=== PATIENT | female | born 1950 | race Caucasian/White ===

== ENCOUNTER 2021-03-08 16:44 | Observation (INO) | payer MEDICARE, OTHER ==
--- NOTE | 2021-03-08 17:00 | ED ---
Chest Pain HPI - General Chief Complaint: Chest Pain Stated Complaint: chest pain Source: EMS Mode of arrival: EMS Limitations: no limitations - History of Present Illness Initial Comments: Patient is a 70-year-old female with past history of hypertension, hyperlipidemia presents emergency department from [facility]. Patient reports that she has had intermittent chest pain for the past couple of days. Describes it as a sharp sensation in the central region of her chest. Denies any provocative factors. No previous history of cardiac disease. Patient did see her primary care physician who sent her into [facility]. Initial workup demonstrated negative troponin. Heart sore was caluculated to be 5. Because of this they did recommend admission for which they did not have cardiology consultation. Patient agreed to transfer to our [facility]. Upon arrival here she states that the pain has subsided. States it is reproducible upon palpation. Denies previous history of cardiac disease. No associated shortness of breath. Denies nausea. No other alleviating, precipitating or modifying factors - Related Data Home Medications Medication Instructions Recorded Confirmed Aspirin EC [Ecotrin Low Dose] 81 mg PO HS 03/08/21 03/08/21 Fenofibrate Nanocrystallized 48 mg PO DAILY 03/08/21 03/08/21 [Fenofibrate] Levothyroxine Sodium [Synthroid] 125 mcg PO DAILY 03/08/21 03/08/21 Losartan Potassium 50 mg PO DAILY 03/08/21 03/08/21 Multivitamins, Thera [Multivitamin 1 tab PO DAILY 03/08/21 03/08/21 (formulary)] [place]-3 Fatty Acids/Fish Oil [Fish 1 cap PO BID 03/08/21 03/08/21 Oil 1,000 mg Softgel] Omeprazole [PriLOSEC] 20 mg PO DAILY 03/08/21 03/08/21 Simvastatin 40 mg PO HS 03/08/21 03/08/21 Allergies Allergy/AdvReac Type Severity Reaction Status Date / Time No Known Allergies Allergy Verified 03/08/21 19:02 Review of Systems ROS Statement: Those systems with pertinent positive or pertinent negative responses have been documented in the HPI. ROS Other: All systems not noted in ROS Statement are negative. EKG Findings - EKG Comments: EKG Findings:: EKG demonstrates normal sinus rhythm with a ventricular rate of 66. NV interval 170. QRS 94. QTC of 421. No acute ST segment elevations or depressions Past Medical History Past Medical History: No Reported History History of Any Multi-Drug Resistant Organisms: None Reported Past Surgical History: No Surgical Hx Reported Past Psychological History: No Psychological Hx Reported Smoking Status: Never smoker Past Alcohol Use History: Rare Past Drug Use History: None Reported - Past Family History Family Family Medical History: No Reported History General Exam Limitations: no limitations General appearance: alert, in no apparent distress Head exam: Present: atraumatic, normocephalic, normal inspection Eye exam: Present: normal appearance, PERRL, EOMI. Absent: scleral icterus, conjunctival injection, periorbital swelling ENT exam: Present: normal exam, mucous membranes moist Neck exam: Present: normal inspection. Absent: tenderness, meningismus, lymphadenopathy Respiratory exam: Present: normal lung sounds bilaterally. Absent: respiratory distress, wheezes, rales, rhonchi, stridor Cardiovascular Exam: Present: regular rate, normal rhythm, normal heart sounds. Absent: systolic murmur, diastolic murmur, rubs, gallop, clicks GI/Abdominal exam: Present: soft, normal bowel sounds. Absent: distended, tenderness, guarding, rebound, rigid Extremities exam: Present: normal inspection, full ROM, normal capillary refill. Absent: tenderness, pedal edema, joint swelling, calf tenderness Back exam: Present: normal inspection Neurological exam: Present: alert, oriented X3, CN II-XII intact Psychiatric exam: Present: normal affect, normal mood Skin exam: Present: warm, dry, intact, normal color. Absent: rash Course Vital Signs 03/08/21 03/08/21 03/08/21 16:46 19:02 19:54 Temperature 98 F Pulse Rate 66 80 82 Respiratory 18 18 16 Rate Blood Pressure 151/76 154/74 153/85 O2 Sat by Pulse 98 100 98 Oximetry 03/08/21 21:35 Temperature Pulse Rate 70 Respiratory 16 Rate Blood Pressure 163/81 O2 Sat by Pulse 98 Oximetry Chest Pain MDM - MDM Upon arrival patient is placed into room 27. Thorough history and physical exam is performed. Patient is pain-free at this time. The patient has already been given 4 aspirins at [facility]. Repeat EKG was performed. La boratory studies were conducted and reviewed. Second troponin is negative. Did recommend hospital admission for which patient did agree to. Spoke with Dr.Michaelle who agreed to admit the patient. She is currently awaiting a bed on the floor Disposition Clinical Impression: Chest pain Disposition: ADMITTED IP TO THIS HOSP Condition: Stable Is patient prescribed a controlled substance at d/c from ED?: No Decision to Admit Reason: Admit from EC Decision Date: 03/08/21 Decision Time: 18:29
[2021-03-08 17:51] LABS: Basophils # (A) 0.1 k/uL (0-0.2); Basophils % (A) 1 %; Eosinophils # (A) 0.8 k/uL (0-0.7); Eosinophils % (A) 8 %; Lymphocytes # (A) 1.8 k/uL (1.0-4.8); Lymphocytes % (A) 19 %; MCHC 34.2 g/dL (31.0-37.0); MCV 90.6 fL (80.0-100.0); Mean Platelet Volume 7.3; Monocytes # (A) 0.4 k/uL (0-1.0); Monocytes % (A) 5 %; Neutrophils # (A) 6.1 k/uL (1.3-7.7); Neutrophils % (A) 66 %; Platelet Count 304 k/uL (150-450); RDW 14.3 % (11.5-15.5); WBC 9.2 k/uL (3.8-10.6)
[2021-03-08 18:05] LABS: Partial Thromboplastin Time 22.3 sec (22.0-30.0); Prothrombin Time 10.5 sec (9.0-12.0)
[2021-03-08 18:13] LABS: Albumin 3.7 g/dL (3.5-5.0); Calcium 9.3 mg/dL (8.4-10.2); Potassium 3.9 mmol/L (3.5-5.1); Total Bilirubin 0.4 mg/dL (0.2-1.3); Total Protein 6.1 g/dL (6.3-8.2)
[2021-03-08] MEDS ORDERED: NALOXONE 0.4 MG/ML 1 ML VIAL IV PRN (18:30)
[2021-03-08] MEDS ORDERED: NON FORMULARY DRUG (Omega-3 Fatty Acids/Fish Oil [Fish Oil 1,000 Mg Softgel] 1 EACH Capsul PO SCH (21:00)
[2021-03-08] MEDS ORDERED: ATORVASTATIN 20 MG TAB PO SCH (21:00)
[2021-03-08] MEDS ORDERED: ASPIRIN 81 MG PO SCH (21:00)
--- NOTE | 2021-03-09 01:56 | P.HPIM ---
History of Present Illness H&P Date: 03/08/21 Chief Complaint: chest pain 70 year old female with hypertension , hyperlipidemia , GERD patient transferred to our facility from [facility] for cardiology evaluation , due to sudden onset chest pain . Friday she started experiencing stiff neck , for which she takes full dose aspirin couple times aday (on empty stomach at times), in addition to her regular baby aspirin at night . last night she experienced sudden onset central sharp chest pain , non ra diating, 7/10 severe pain . no associated SOB, palpitations, nausea , vomiting, diaphoresis, or dizziness. this happened at rest while doing nothing , no specific precipitating or aggravating factors. pain started to get worse as she laid down to rest. after one hour pain resolved. today she went to see her doctor , who did an EKG , and was suspecting some changes, and recommended she goes to the ED, at [facility] they evaluated her and transferred her to our facility for evaluation by cardiology patient is currently sitting comfortable denies any pain in the ED, blood work , vital signs , and EKG all unremarkable she denies any fever, chills, URI symptoms, GI bleeding , changes in bowel or urinary habits. denies any cardiac history , denies any smoking . she does have chronic GERD on PPI Review of Systems Pertinent positives as noted in HPI. All other systems were reviewed and are negative Past Medical History Past Medical History: GERD/Reflux, Hyperlipidemia, Hypertension History of Any Multi-Drug Resistant Organisms: None Reported Past Surgical History: No Surgical Hx Reported Past Psychological History: No Psychological Hx Reported Smoking Status: Never smoker Past Alcohol Use History: Rare Past Drug Use History: None Reported - Past Family History Family Family Medical History: No Reported History Medications and Allergies Home Medications Medication Instructions Recorded Confirmed Type Aspirin EC [Ecotrin Low Dose] 81 mg PO HS 03/08/21 03/08/21 History Fenofibrate Nanocrystallized 48 mg PO DAILY 03/08/21 03/08/21 History [Fenofibrate] Levothyroxine Sodium [Synthroid] 125 mcg PO DAILY 03/08/21 03/08/21 History Losartan Potassium 50 mg PO DAILY 03/08/21 03/08/21 History Multivitamins, Thera [Multivitamin 1 tab PO DAILY 03/08/21 03/08/21 History (formulary)] [place]-3 Fatty Acids/Fish Oil [Fish 1 cap PO BID 03/08/21 03/08/21 History Oil 1,000 mg Softgel] Omeprazole [PriLOSEC] 20 mg PO DAILY 03/08/21 03/08/21 History Simvastatin 40 mg PO HS 03/08/21 03/08/21 History Allergies Allergy/AdvReac Type Severity Reaction Status Date / Time No Known Allergies Allergy Verified 03/08/21 19:02 Physical Exam Vitals: Vital Signs Temp Pulse Resp BP Pulse Ox 03/08/21 19:54 82 16 153/85 98 03/08/21 19:02 80 18 154/74 100 03/08/21 16:46 98 F 66 18 151/76 98 Intake and Output 03/08/21 03/08/21 03/08/21 06:59 14:59 22:59 Other: Weight 103.873 kg Constitutional: No acute distress, conversant, pleasant Eyes: Anicteric sclerae, moist conjunctiva, Pupils equal round reactive to light ENMT: NC/AT Oropharynx clear, no erythema, or exudates Neck: Supple, FROM, no masses, or JVD No carotid bruits No thyromegaly Lungs: Clear to auscultation Clear to percussion Normal respiratory effort, no accessory muscle use Cardiovascular: Heart regular in rate and rhythm, No murmurs, gallops, or rubs No peripheral edema Abdominal: Soft Nontender, no guarding, rebound or rigidity Abdomen moving with respiration Normoactive bowel sounds No hepatomegaly, No splenomegaly No palpable mass No abdominal wall hernia noted Skin: Normal temperature, tone, texture, turgor No induration No subcutaneous nodules No rash, lesions No ulcers Extremities: No digital cyanosis No clubbing Pedal pulses intact and symmetrical Radial pulses intact and symmetrical No calf tenderness Psychiatric: Alert and oriented to person, place and time Appropriate affect fair judgement Neuro Muscles Strength 5/5 in all 4 extremities Sensation to light touch grossly present throughout Cranial nerves II-XII grossly intact No focal sensory deficits Lymphatics: no palpable cervical or supraclavicular , or inguinal lymph nodes Results CBC & Chem 7: 03/08/21 17:44 03/08/21 17:44 Labs: Abnormal Lab Results - Last 24 Hours (Table) 03/08/21 03/08/21 Range/Units 17:44 17:44 Eosinophils # 0.8 H (0-0.7) k/uL Chloride 109 H (98-107) mmol/L Total Protein 6.1 L (6.3-8.2) g/dL Assessment and Plan Assessment: Atypical chest pain rule out ACS Hyperlipidemia Cardiac monitoring Monitor vital signs Trend cardiac enzymes Aspirin, statin Labs reviewed EKG reviewed Chronic GERD, PPI twice a day CODE STATUS: Full code DVT prophylaxis: Mechanical Discussed with: Patient, ER, Anticipated length of stay less than [address]: Home A total of 70 minutes was spent on the care of this complex patient more than 50% of the time was spent in counseling and care coordination.
[2021-03-09] MEDS ORDERED: LEVOTHYROXINE 125 MCG TAB PO SCH (06:30)
[2021-03-09] MEDS ORDERED: PANTOPRAZOLE 40 MG TABLET PO SCH ×2 (07:30→09:00)
[2021-03-09] MEDS ORDERED: MULTIVITAMINS, THERA 1 EACH TAB PO SCH (09:00)
[2021-03-09] MEDS ORDERED: FENOFIBRATE 54 MG TAB PO SCH (09:00)
[2021-03-09] MEDS ORDERED: LOSARTAN 50 MG TAB PO SCH (09:00)
--- NOTE | 2021-03-09 09:58 | P.CRDCN ---
History of Present Illness History of present illness: HISTORY OF PRESENTING ILLNESS This is a pleasant 70-year-old female past medical history significant for hypertension and dyslipidemia. She denies prior history of coronary artery disease and does not follow in the office with a electrical calibrator. We have been asked to see in consultation for chest pain. She states for the previous one week she has been experiencing a stiff tight sensation in her neck that radiates into both shoulders. This discomfort is described as an achy sensation that is exacerbated by certain movements of her arms and head. On Friday she noticed a discomfort in the chest in the midsternal region that seemed to radiate from the neck to the chest. The discomfort was not associated with activity or exertion. There was no associated symptoms. She is currently chest pain-free. She saw her primary care physician on and was recommended to go to the hospital for further evaluation. She initially presented to [facility] and was transferred here for further cardiac evaluation. DIAGNOSTICS EKG reveals sinus mechanism heart rate of 66 with nonspecific abnormalities noted. Telemetry tracings indicate sinus mechanism. Laboratory reviewed, EDC unremarkable, sodium 143, potassium 3.9, creatinine 0.79, cardiac enzymes negative 3. Current cardiac medications include simvastatin 40 mg at bedtime, aspirin 81 mg daily, losartan 50 mg daily and fenofibrate 48 mg daily. REVIEW OF SYSTEMS At the time of my exam: CONSTITUTIONAL: Denies fever or chills. CARDIOVASCULAR: Denies chest pain, shortness of breath, orthopnea, PND or pa lpitations. RESPIRATORY: Denies cough. GASTROINTESTINAL: Denies abdominal pain, diarrhea, constipation, nausea or vomiting. MUSCULOSKELETAL: Denies myalgias. NEUROLOGIC: Denies numbness, tingling, headacbe or weakness. ENDOCRINE: Denies fatigue, weight change, polydipsia or polyurina. GENITOURINARY: Denies burning, hematuria or urgency with micturation. HEMATOLOGIC: Denies history of anemia or bleeding. PHYSICAL EXAMINATION Blood pressure 120/72 heart rate 64 afebrile and maintaining oxygen saturation on room air. CONSTITUTIONAL: No apparent distress. HEENT: Head is normocephalic. Pupils are equal, round. Sclerae anicteric. Mucous membranes of the mouth are moist. No JVD. No carotid bruit. CHEST EXAMINATION: Lungs are clear to auscultation. No chest wall tenderness is noted on palpation or with deep breathing. HEART EXAMINATION: Regular rate and rhythm. S1, S2 heard. Systolic ejection murmur at the base, no gallops or rub. ABDOMEN: Soft, nontender. Positive bowel sounds. EXTREMITIES: 2+ peripheral pulses, no lower extremity edema and no calf tenderness. NEUROLOGIC EXAMINATION: Patient is awake, alert and oriented x3. ASSESSMENT Chest pain, atypical Hypertension Dyslipidemia Obesity, BMI 39 PLAN An acute coronary event has been ruled out. Pain is atypical to be related to angina. Obtain 2-D echocardiogram and Doppler study to assess cardiac structure and function secondary to murmur auscultated on exam. Obtain stress echocardiogram to assess for stress-induced cardiac ischemia. Check lipid profile. If stress test is normal she may be discharged from a cardiac perspective, follow-up in the outpatient setting with Dr. Bear. Thank you kindly for this consultation. Nurse Practitioner note has been reviewed, I agree with a documented findings and plan of care. Patient was seen and examined. Past Medical History Past Medical History: GERD/Reflux, Hyperlipidemia, Hypertension History of Any Multi-Drug Resistant Organisms: None Reported Past Surgical History: No Surgical Hx Reported Past Psychological History: No Psychological Hx Reported Smoking Status: Never smoker Past Alcohol Use History: Rare Past Drug Use History: None Reported - Past Family History Family Family Medical History: No Reported History Medications and Allergies Home Medications Medication Instructions Recorded Confirmed Type Aspirin EC [Ecotrin Low Dose] 81 mg PO HS 03/08/21 03/08/21 History Fenofibrate Nanocrystallized 48 mg PO DAILY 03/08/21 03/08/21 History [Fenofibrate] Levothyroxine Sodium [Synthroid] 125 mcg PO DAILY 03/08/21 03/08/21 History Losartan Potassium 50 mg PO DAILY 03/08/21 03/08/21 History Multivitamins, Thera [Multivitamin 1 tab PO DAILY 03/08/21 03/08/21 History (formulary)] [place]-3 Fatty Acids/Fish Oil [Fish 1 cap PO BID 03/08/21 03/08/21 History Oil 1,000 mg Softgel] Omeprazole [PriLOSEC] 20 mg PO DAILY 03/08/21 03/08/21 History Simvastatin 40 mg PO HS 03/08/21 03/08/21 History Allergies Allergy/AdvReac Type Severity Reaction Status Date / Time No Known Allergies Allergy Verified 03/08/21 19:02 Physical Exam Vitals: Vital Signs Temp Pulse Pulse Resp BP BP Pulse Ox 03/09/21 08:00 16 03/09/21 07:00 97.9 F 64 17 120/72 99 03/09/21 02:00 98.0 F 57 L 16 146/70 96 03/08/21 22:07 98.5 F 70 160/98 97 03/08/21 21:35 70 16 163/81 98 03/08/21 19:54 82 16 153/85 98 03/08/21 19:02 80 18 154/74 100 03/08/21 16:46 98 F 66 18 151/76 98 Intake and Output 03/08/21 03/09/21 03/09/21 22:59 06:59 14:59 Intake Total 0 Balance 0 Intake: Oral 0 Other: Voiding Method Toilet # Voids 0 0 Weight 103.873 kg Results 03/08/21 17:44 03/08/21 17:44 Cardiac Enzymes 03/08/21 03/08/21 03/08/21 Range/Units 17:44 17:44 20:12 AST 23 (14-36) U/L Troponin I <0.012 <0.012 (0.000-0.034) ng/mL 03/09/21 Range/Units 01:05 AST (14-36) U/L Troponin I <0.012 (0.000-0.034) ng/mL Coagulation 03/08/21 Range/Units 17:44 PT 10.5 (9.0-12.0) sec APTT 22.3 (22.0-30.0) sec CBC 03/08/21 Range/Units 17:44 WBC 9.2 (3.8-10.6) k/uL RBC 4.20 (3.80-5.40) m/uL Hgb 13.0 (11.4-16.0) gm/dL Hct 38.0 (34.0-46.0) % Plt Count 304 (150-450) k/uL Comprehensive Metabolic Panel 03/08/21 Range/Units 17:44 Sodium 143 (137-145) mmol/L Potassium 3.9 (3.5-5.1) mmol/L Chloride 109 H (98-107) mmol/L Carbon Dioxide 27 (22-30) mmol/L BUN 14 (7-17) mg/dL Creatinine 0.79 (0.52-1.04) mg/dL Glucose 91 (74-99) mg/dL Calcium 9.3 (8.4-10.2) mg/dL AST 23 (14-36) U/L ALT 21 (4-34) U/L Alkaline Phosphatase 79 (38-126) U/L Total Protein 6.1 L (6.3-8.2) g/dL Albumin 3.7 (3.5-5.0) g/dL Current Medications Generic Name Dose Route Start Last Admin Trade Name Freq PRN Reason Stop Dose Admin Aspirin 81 mg 03/08/21 21:00 03/08/21 22:21 Aspirin 81 Mg PO Not Given HS SHENG Atorvastatin Calcium 20 mg 03/08/21 21:00 03/08/21 22:23 Atorvastatin 20 Mg Tab PO 20 mg HS SHENG Administration Fenofibrate 54 mg 03/09/21 09:00 03/09/21 07:46 Fenofibrate 54 Mg Tab PO 54 mg DAILY SHENG Administration Levothyroxine Sodium 125 mcg 03/09/21 06:30 03/09/21 05:41 Levothyroxine 125 Mcg Tab PO 125 mcg 0630 SHENG Administration Losartan Potassium 50 mg 03/09/21 09:00 03/09/21 07:46 Losartan 50 Mg Tab PO 50 mg DAILY SHENG Administration Multivitamins 1 each 03/09/21 09:00 03/09/21 07:46 Multivitamins, Thera 1 Each Tab PO 1 each DAILY SHENG Administration Naloxone HCl 0.2 mg 03/08/21 18:30 Naloxone 0.4 Mg/Ml 1 Ml Vial IV Q2M PRN Opioid Reversal Pantoprazole Sodium 40 mg 03/09/21 07:30 03/09/21 07:46 Pantoprazole 40 Mg Tablet PO 40 mg AC-BID SHENG Administration Intake and Output 03/08/21 03/09/21 03/09/21 22:59 06:59 14:59 Intake Total 0 Balance 0 Intake: Oral 0 Other: Voiding Method Toilet # Voids 0 0 Weight 103.873 kg 03/08/21 17:44 03/08/21 17:44
[2021-03-09 11:02] LABS: Basophils # (A) 0.05 X 10*3/uL (0.00-0.10); Basophils % (A) 0.6 %; Eosinophils # (A) 0.66 X 10*3/uL (0.04-0.35); Eosinophils % (A) 7.3 %; HCT 39.9 % (37.2-46.3); Lymphocytes # (A) 2.15 X 10*3/uL (0.90-5.00); Lymphocytes % (A) 23.9 %; MCH 30.2 pg (27.0-32.0); MCHC 32.6 g/dL (32.0-37.0); MCV 92.6 fL (80.0-97.0); Monocytes % (A) 7.8 %; Neutrophils % (A) 60.1 %; Platelet Count 323 X 10*3/uL (140-440); RBC 4.31 X 10*6/uL (4.10-5.20); RDW 14.9 % (11.5-14.5); WBC 8.99 X 10*3/uL (4.50-10.00)
--- NOTE | 2021-03-09 12:00 | ECHOF ---
Referral Reason:murmur MEASUREMENTS -------- HEIGHT: 162.6 cm WEIGHT: 103.9 kg BP: 146/70 IVSd: 1.7 cm (0.6 - 1.1) LVIDd: 3.4 cm (3.9 - 5.3) LVPWd: 2.1 cm (0.6 - 1.1) IVSs: 2.4 cm LVIDs: 1.6 cm LVPWs: 1.6 cm LAESV Index (A-L): 28.50 ml/m Ao Diam: 3.0 cm (2.0 - 3.7) AV Cusp: 1.2 cm (1.5 - 2.6) MV EXCURSION: 17.180 mm (> 18.000) MV EF SLOPE: 28 mm/s (70 - 150) EPSS: 0.3 cm MV E Nader: 1.00 m/s MV DecT: 232 ms MV A Nader: 1.29 m/s MV E/A Ratio: 0.77 FINDINGS -------- Sinus rhythm. This was a technically difficult study with suboptimal views. The left ventricular size is normal. There is severe concentric left ventricular hypertrophy. Ove rall left ventricular systolic function is normal with, an EF between 55 - 60 %. The diastolic fill ing pattern is normal for the age of the patient 16.90. The right ventricle is normal in size. Normal LA size by volume 22+/-6 ml/m2. The right atrium was not well visualized. xx ml of Lumason was utilized for enhancement of images. Interatrial and interventricular septum intact. The aortic valve was not well visualized. Trace amount of aortic regurgitation. There is no evid ence of aortic stenosis. Mild mitral annular calcification present. Mild mitral regurgitation is present. Trace tricuspid regurgitation present. Unable to estimate RVSP due to inadequate TR jet spectral do ppler profile. The pulmonic valve was not well visualized. There is no pulmonic regurgitation present. The aortic root size is normal. IVC Not well visulized. There is a trivial pericardial effusion present. CONCLUSIONS -------- 1. This was a technically difficult study with suboptimal views. 2. There is severe concentric left ventricular hypertrophy. 3. Overall left ventricular systolic function is normal with, an EF between 55 - 60 %. 4. Normal LA size by volume 22+/-6 ml/m2. 5. Trace amount of aortic regurgitation. 6. Mild mitral annular calcification present. 7. Mild mitral regurgitation is present. 8. Trace tricuspid regurgitation present. 9. There is a trivial pericardial effusion present. AUTOMOTIVE TECHNICIAN INSTRUCTOR: Adriana Reynoso RDCS
[2021-03-09 13:59] LABS: Chol/HDL Ratio 4.71
[2021-03-09 14:05] VITALS: BP 144/79; PULSE 78; RESP 18; TEMP 98.1
--- NOTE | 2021-03-09 14:28 | P.DS ---
Providers Date of admission: 03/08/21 18:31 Expected date of discharge: 03/09/21 Attending physician: Jennifer Braswell MD Consults: 03/08/21 18:32 Consult Physician Urgent Consulting Provider: [facility] Consult Reason/Comments: acute chest pain, possible acs Do you want consulting provider notified?: Yes Primary care physician: Tim Alva Hospital Course: This is a 70-year-old female with past medical history significant for essential hypertension, hyperlipidemia, and obesity that presented to the emergency room with chest pain. Patient was evaluated in the ER in 12-lead EKG showed no acute ischemic changes. Patient was placed on observation for further management. Serial troponin remained negative. Patient was seen and evaluated by cardiology. She underwent a cardiac stress test that was reported normal. Echocardiogram showed a preserved ejection fraction with no significant valvular abnormalities. Patient was cleared by cardiology to be discharged home. She was chest pain-free at the day of my evaluation. She will be discharged home in a stable condition. For further details about this hospitalization please refer to the electronic chart. Patient Condition at Discharge: Stable Plan - Discharge Summary New Discharge Prescriptions: Continue Simvastatin 40 mg PO HS Aspirin EC [Ecotrin Low Dose] 81 mg PO HS Losartan Potassium 50 mg PO DAILY Fenofibrate Nanocrystallized [Fenofibrate] 48 mg PO DAILY Omeprazole [PriLOSEC] 20 mg PO DAILY Multivitamins, Thera [Multivitamin (formulary)] 1 tab PO DAILY Levothyroxine Sodium [Synthroid] 125 mcg PO DAILY [place]-3 Fatty Acids/Fish Oil [Fish Oil 1,000 mg Softgel] 1 cap PO BID Discharge Medication List Aspirin EC [Ecotrin Low Dose] 81 mg PO HS 03/08/21 [History] Fenofibrate Nanocrystallized [Fenofibrate] 48 mg PO DAILY 03/08/21 [History] Levothyroxine Sodium [Synthroid] 125 mcg PO DAILY 03/08/21 [History] Losartan Potassium 50 mg PO DAILY 03/08/21 [History] Multivitamins, Thera [Multivitamin (formulary)] 1 tab PO DAILY 03/08/21 [History] [place]-3 Fatty Acids/Fish Oil [Fish Oil 1,000 mg Softgel] 1 cap PO BID 03/08/21 [History] Omeprazole [PriLOSEC] 20 mg PO DAILY 03/08/21 [History] Simvastatin 40 mg PO HS 03/08/21 [History] Follow up Appointment(s)/Referral(s): Domonique Bear MD [STAFF PHYSICIAN] - 2 Weeks Tim Alva MD [Primary Care Provider] - 1-2 days Discharge Disposition: HOME SELF-CARE
[2021-03-09 14:38] LABS: Anion Gap 10.2 mmol/L (4.00-12.00); Calcium 9.3 mg/dL (8.7-10.3); Carbon Dioxide 21.8 mmol/L (21.6-31.8); Non-African American GFR(CKD) 87.2 (60.0-200.0); Potassium 4.3 mmol/L (3.5-5.5)
--- NOTE | 2021-03-09 14:43 | ECHOS ---
STRESS ECHOCARDIOGRAM INDICATIONS: Abnormal EKG. MEDICATIONS: BASELINE HEART RATE: 65 BASELINE BLOOD PRESSURE: 150/74 MAXIMUM HEART RATE: 149 MAXIMUM BLOOD PRESSURE: 195/80. 85% MPHR: 127 100% MPHR: 149 METS: 4.6 MAXIMUM STAGE REACHED: I TOTAL EXERCISE TIME: 3 minutes and 14 seconds. CLINICAL INFORMATION: Baseline rhythm is a sinus mechanism, rate of 65, borderline left axis deviation, poor R progression. Baseline blood pressure 150/74 mmHg. Patient exercised on Bo protocol for 3 minutes 14 seconds reaching peak rate of 149 beats per minute which is equal to 100% maximum predicted heart rate. Peak blood pressure 195/80 mmHg. Test was terminated secondary to fatigue. There was no chest pain. Electrocardiograph monitoring revealed rate-related left bundle branch block with occasional PVCs. Baseline echocardiogram revealed normal wall motion. At peak exercise, there was normal wall motion augmentation with no hypokinesis or dyskinesis. CONCLUSION: 1. Decreased exercise tolerance with rate-related left bundle branch block and nondiagnostic electrocardiograph stress testing with occasional PVCs. 2. Normal stress echocardiogram with no evidence of stress-induced ischemia. MMODL / IJN: [id number] /
== END 2021-03-09 15:47 | disposition home or self-care (01) ==
LOC: EC 16:44 → 6NMEDSUR 18:31
PROVIDERS: ADMIT Internal Medicine; ATTEND Internal Medicine
DX: R07.89 Other chest pain (principal); R07.2 Precordial pain; I10 Essential (primary) hypertension; E78.5 Hyperlipidemia, unspecified; E66.9 Obesity, unspecified; M43.6 Torticollis; K21.9 Gastro-esophageal reflux disease without esophagitis; R94.31 Abnormal electrocardiogram [ECG] [EKG]; Z68.39 Body mass index [BMI] 39.0-39.9, adult; Z79.82 Long term (current) use of aspirin; Z79.890 Hormone replacement therapy; Z79.899 Other long term (current) drug therapy; Z20.822 Contact with and (suspected) exposure to COVID-19
CPT/HCPCS: 99285; 36415; 93005; 80061; 80053; 80048; 84484 ×2; 85025 ×2; 85610; 85730; 87636; G0378 ×2; C8929; C8930; Q9950; 93306; 93351